=== PATIENT | male | born 1960 | race Caucasian/White ===

== ENCOUNTER 2019-02-20 21:20 | Inpatient (IN) | payer MEDICARE, OTHER ==
[2019-02-20 21:47] VITALS: BP 118/71
[2019-02-20] MEDS ORDERED: Magnesium Hydroxide (MOM) 30 mL UDC PO PRN (21:53)
[2019-02-21] MEDS: Multivitamin Tab PO SCH (11:53)
--- NOTE | 2019-02-21 14:48 | History & Physical ---
ADMIT DATE: 02/21/2019 CHIEF COMPLAINT: Agitated behavior. HISTORY OF PRESENT ILLNESS: This is a 58-year-old male with history of GERD. He initially ____ cleared medically. The patient denies previous history of weight loss, chest pain, headache and back pain. PAST MEDICAL HISTORY: As mentioned in history of present illness. PAST SURGICAL HISTORY: Denies surgeries in the past. ALLERGIES: No known drug allergies. MEDICATIONS: None from home, given multivitamin, Tylenol, Ambien. FAMILY HISTORY: Noncontributory. SOCIAL HISTORY: Denies smoking, drinks on occasion. The patient did maintenance. Denies intravenous drug use. Single, has a girlfriend. No children. REVIEW OF SYSTEMS: GENERAL: The patient denies any questionable symptoms. HEENT: No blurred vision. LUNGS: No diagnosis of COPD or asthma. HEART: Denies hypertension or coronary artery disease. ABDOMEN: No nausea, vomiting, pain, history of acid reflux. GENITOURINARY: The patient has increased dysuria. NEUROLOGIC: Complains of headache. No seizure or syncope. PSYCHIATRIC: As above. EXTREMITIES: Complaining of back pain. PHYSICAL EXAMINATION: VITAL SIGNS: Blood pressure 134/73, respiration 18, pulse , temperature 97.0. GENERAL: Middle-aged male in acute distress, well-developed. NECK: Supple. No mass. LUNGS: Equal breath sounds, otherwise clear to auscultation. HEART: Regular rate and rhythm without appreciable murmur. ABDOMEN: Soft, nontender. Positive bowel sounds. EXTREMITIES: No clubbing, cyanosis or edema. GENITOURINARY: This was refused. NEUROLOGIC: Motor and sensory were equal. Gait is within normal range. LABORATORY DATA: CBC, Chem-20 all within normal range in the [facility]. Please see the report. ASSESSMENT AND PLAN: 1. Gastroesophageal reflux disease. 2. Headache. We will continue the patient on proton pump inhibitor. 4. We will provide the patient nonsteroidal anti-inflammatory drugs. The patient medically cleared. Psychiatry to manage the patient for psych issues. We will continue to follow with you. JOB# [id number]
--- NOTE | 2019-02-21 22:45 | Psychiatric Evaluation ---
DATE OF SERVICE: 02/21/2019 HISTORY OF PRESENT ILLNESS: A 58-year-old male with history of schizophrenia, suicidal, not taking medications for about a week. The patient attests to paranoia, feeling that people are trying to hurt him, hopeless, despairing, notes he was suicidal for "1 hour." PAST PSYCHIATRIC HISTORY: Inpatient admissions in the past. Denies any suicide attempts. FAMILY HISTORY: Noncontributory. SOCIAL HISTORY: Born in [place]. Not , no kids, no drugs. Drinks alcohol once a week, unclear quantity. MEDICATIONS: Unclear. MENTAL STATUS EXAMINATION: Stated age, little eye contact. Speech within normal limits. Mood "okay." Affect flat, responding to internal stimuli, paranoid, guarded about any SI, no HI. Insight and judgment diminished. PROVISIONAL DIAGNOSES: Schizophrenia; mood, unspecified. MEDICAL: Please see full H and P. ESTIMATED LENGTH OF STAY: 7-12 days. ASSESSMENT: The patient requiring hospitalization, suicidal, psychotic, paranoid. PLAN: Treatment plan includes group as well as milieu therapy. We will reinitiate antipsychotic medications, trazodone for sleep, per the patient's request. CONDITIONS FOR DISCHARGE: Improved mood, improved affect, better control of any psychotic symptoms, suicidality. [facility]# [id number]
[2019-02-22] MEDS: Maalox 30 mL Cup PO PRN ×2 (00:25→08:56)
[2019-02-22] MEDS: Multivitamin Tab PO SCH (08:56)
[2019-02-22] MEDS: Pantoprazole 40 mg EC Tab PO SCH (08:56)
--- NOTE | 2019-02-22 12:23 | Internal Medicine Prog Note ---
Internal Medicine Subjective - Subjective Patient seen and examined:: with staff, chart reviewed Patient is:: awake, verbal, interactive, ambulating Patient Complaints of:: cough Per staff patient has:: no adverse event, no episodes of fall, eating well, tolerating meds Internal Medicine Objective - Physical Exam Vitals and I&O: Vital Signs Temp 97.3 F 02/22/19 06:36 Pulse 64 02/22/19 06:36 Resp 20 02/22/19 06:36 BP 104/63 02/22/19 06:36 Pulse Ox 97 02/22/19 06:36 Intake & Output 02/21/19 02/22/19 02/22/19 18:59 06:59 18:59 Intake Total 900 480 Balance 900 480 Intake: Oral 900 480 Other: # Voids 3 3 # Bowel Movements 1 0 Active Medications: Current Medications Acetaminophen (Tylenol) 650 mg PO Q4HR PRN PRN Reason: Mild Pain / Temp above 100 Stop: 04/21/19 21:52 Al Hydrox/Mg Hydrox/Simethicone (Maalox) 30 ml PO Q4HR PRN PRN Reason: GI DISTRESS Stop: 04/21/19 21:52 Last Admin: 02/22/19 08:56 Dose: 30 ml Lorazepam (Ativan) 0.5 mg PO Q4HR PRN; Protocol PRN Reason: Agitation Stop: 03/22/19 21:52 Magnesium Hydroxide (Milk Of Magnesia) 30 ml PO HS PRN PRN Reason: Constipation Multivitamins/Vitamin C (Theragran) 1 tab PO DAILY RUSSELL Stop: 04/22/19 08:59 Last Admin: 02/22/19 08:56 Dose: 1 tab Pantoprazole Sodium (Protonix) 40 mg PO DAILY RUSSELL Stop: 04/23/19 08:59 Last Admin: 02/22/19 08:56 Dose: 40 mg Risperidone (Risperdal) 1 mg PO BID RUSSELL; Protocol Stop: 04/23/19 16:59 Trazodone HCl (Desyrel) 50 mg PO HS RUSSELL; Protocol Stop: 04/22/19 20:59 Last Admin: 02/21/19 20:34 Dose: 50 mg General: alert HEENT: NC/AT, PERRLA, EOMI Neck: Supple, No JVD, No thyromegaly, No LAD Lungs: CTAB Cardiovascular: RRR, Normal S1, Normal S2, without murmur Abdomen: soft, non-tender, globular, non-distended, positive bowel sound Extremities: excoriation, contracture Neurological: no change, disorganized Internal Medicine Assmt/Plan - Assessment Assessment: gerd headache lbp sad - Plan Plan: cont on ppi labs from outside hospital noted cpm darrick rn
--- NOTE | 2019-02-22 21:31 | Progress Notes ---
DATE: 02/22/2019 SUBJECTIVE: The patient in the hospital, was apparently suicidal, not vannesa for safety, homeless, despairing, hopeless, helpless. The patient remains depressed. OBJECTIVE: On exam, mostly withdrawn, keeps to self, ongoing SI, still feeling paranoid, feeling that people may be trying to hurt him or harm him. ASSESSMENT: The patient remains psychotic, ongoing safety concerns, withdrawn, mostly keeps to self. No vertigo. PLAN: We will continue to monitor. I will be increasing his dosing of Risperdal today. JOB# [id number]
[2019-02-23] MEDS: Pantoprazole 40 mg EC Tab PO SCH (09:16)
[2019-02-23] MEDS: Multivitamin Tab PO SCH (09:16)
--- NOTE | 2019-02-23 12:43 | Internal Medicine Prog Note ---
Internal Medicine Subjective - Subjective Patient seen and examined:: with staff, chart reviewed Patient is:: awake, verbal, interactive, ambulating Patient Complaints of:: cough Per staff patient has:: no adverse event, no episodes of fall, eating well, tolerating meds Internal Medicine Objective - Physical Exam Vitals and I&O: Vital Signs Temp 97.4 F 02/23/19 05:59 Pulse 72 02/23/19 05:59 Resp 20 02/23/19 05:59 BP 107/63 02/23/19 05:59 Pulse Ox 94 02/23/19 05:59 Intake & Output 02/22/19 02/23/19 02/23/19 18:59 06:59 18:59 Intake Total 900 240 Balance 900 240 Intake: Oral 900 240 Other: # Voids 3 1 # Bowel Movements 1 0 Active Medications: Current Medications Acetaminophen (Tylenol) 650 mg PO Q4HR PRN PRN Reason: Mild Pain / Temp above 100 Stop: 04/21/19 21:52 Al Hydrox/Mg Hydrox/Simethicone (Maalox) 30 ml PO Q4HR PRN PRN Reason: GI DISTRESS Stop: 04/21/19 21:52 Last Admin: 02/22/19 08:56 Dose: 30 ml Lorazepam (Ativan) 0.5 mg PO Q4HR PRN; Protocol PRN Reason: Agitation Stop: 03/22/19 21:52 Magnesium Hydroxide (Milk Of Magnesia) 30 ml PO HS PRN PRN Reason: Constipation Multivitamins/Vitamin C (Theragran) 1 tab PO DAILY RUSSELL Stop: 04/22/19 08:59 Last Admin: 02/23/19 09:16 Dose: 1 tab Pantoprazole Sodium (Protonix) 40 mg PO DAILY RUSSELL Stop: 04/23/19 08:59 Last Admin: 02/23/19 09:16 Dose: 40 mg Risperidone (Risperdal) 1 mg PO BID RUSSELL; Protocol Stop: 04/23/19 16:59 Last Admin: 02/23/19 09:16 Dose: 1 mg Trazodone HCl (Desyrel) 50 mg PO HS RUSSELL; Protocol Stop: 04/22/19 20:59 Last Admin: 02/22/19 20:13 Dose: 50 mg General: alert HEENT: NC/AT, PERRLA, EOMI Neck: Supple, No JVD, No thyromegaly, No LAD Lungs: CTAB Cardiovascular: RRR, Normal S1, Normal S2, without murmur Abdomen: soft, non-tender, globular, non-distended, positive bowel sound Extremities: excoriation, contracture Neurological: no change, disorganized Internal Medicine Assmt/Plan - Assessment Assessment: gerd headache lbp sad - Plan Plan: cont on ppi labs from outside hospital noted cpm darrick brown
--- NOTE | 2019-02-24 02:46 | Progress Notes ---
DATE: 02/23/2019 SUBJECTIVE: A 58-year-old male who remains pretty depressed, mostly withdrawn, keeps to self, depressed, ongoing melancholy, isolation, has nowhere to go, has no plans of where he wants to go. He states he needs a place to go, has been homeless for 2 months. He states his board and care closed down, cooperative. Staff notes that at time he is bizarre, seems to be mumbling to self, ongoing concerns for underlying psychosis. No agitation. PLAN: We will continue to monitor. Continue dosing of Risperdal. Given recent dose increase. We will continue current dosing. JOB# [id number]
[2019-02-24] MEDS: Multivitamin Tab PO SCH (08:18)
[2019-02-24] MEDS: Pantoprazole 40 mg EC Tab PO SCH (08:19)
--- NOTE | 2019-02-24 13:12 | Internal Medicine Prog Note ---
Internal Medicine Subjective - Subjective Patient seen and examined:: with staff, chart reviewed Patient is:: awake, verbal, interactive, ambulating Patient Complaints of:: cough Per staff patient has:: no adverse event, no episodes of fall, eating well, tolerating meds Internal Medicine Objective - Physical Exam Vitals and I&O: Vital Signs Temp 97.4 F 02/24/19 06:36 Pulse 81 02/24/19 06:36 Resp 20 02/24/19 06:36 BP 103/71 02/24/19 06:36 Pulse Ox 98 02/24/19 06:36 Intake & Output 02/23/19 02/24/19 02/24/19 18:59 06:59 18:59 Intake Total 1200 360 Balance 1200 360 Intake: Oral 960 360 Other 240 Other: # Voids 4 2 # Bowel Movements 1 0 Active Medications: Current Medications Acetaminophen (Tylenol) 650 mg PO Q4HR PRN PRN Reason: Mild Pain / Temp above 100 Stop: 04/21/19 21:52 Al Hydrox/Mg Hydrox/Simethicone (Maalox) 30 ml PO Q4HR PRN PRN Reason: GI DISTRESS Stop: 04/21/19 21:52 Last Admin: 02/22/19 08:56 Dose: 30 ml Lorazepam (Ativan) 0.5 mg PO Q4HR PRN; Protocol PRN Reason: Agitation Stop: 03/22/19 21:52 Magnesium Hydroxide (Milk Of Magnesia) 30 ml PO HS PRN PRN Reason: Constipation Multivitamins/Vitamin C (Theragran) 1 tab PO DAILY RUSSELL Stop: 04/22/19 08:59 Last Admin: 02/24/19 08:18 Dose: 1 tab Pantoprazole Sodium (Protonix) 40 mg PO DAILY RUSSELL Stop: 04/23/19 08:59 Last Admin: 02/24/19 08:19 Dose: 40 mg Risperidone (Risperdal) 1 mg PO BID RUSSELL; Protocol Stop: 04/23/19 16:59 Last Admin: 02/24/19 08:19 Dose: 1 mg Trazodone HCl (Desyrel) 50 mg PO HS RUSSELL; Protocol Stop: 04/22/19 20:59 Last Admin: 02/23/19 21:17 Dose: 50 mg General: alert HEENT: NC/AT, PERRLA, EOMI Neck: Supple, No JVD, No thyromegaly, No LAD Lungs: CTAB Cardiovascular: RRR, Normal S1, Normal S2, without murmur Abdomen: soft, non-tender, globular, non-distended, positive bowel sound Extremities: excoriation, contracture Neurological: no change, disorganized Internal Medicine Assmt/Plan - Assessment Assessment: gerd headache lbp sad - Plan Plan: cont on ppi labs from outside hospital noted cpm darrick brown
--- NOTE | 2019-02-24 21:54 | Progress Notes ---
DATE: 02/24/2019 SUBJECTIVE: The patient in the hospital, pretty impoverished thought processes. I asked him where he is going to go; he is mostly fixated on a bus pass. When I asked him if he needs to go to senior care and what needs he needs at the senior care, he just keeps talking about a bus pass. Unable to really care for his basic needs. We are trying to help him with placement. He is focused on leaving, but really has nowhere to go and when I state he has nowhere to go, he agrees to stay. Pacing back and forth, mumbling to self. History of schizophrenia. PLAN: We will continue to monitor ongoing concerns about his ability to really function outside of the hospital setting. I will be increasing his dosing of Risperdal today. [facility]# [id number]
[2019-02-25] MEDS: Multivitamin Tab PO SCH (08:47)
[2019-02-25] MEDS: Pantoprazole 40 mg EC Tab PO SCH (08:47)
--- NOTE | 2019-02-25 12:48 | Internal Medicine Prog Note ---
Internal Medicine Subjective - Subjective Patient seen and examined:: with staff, chart reviewed Patient is:: awake, verbal, interactive, ambulating Patient Complaints of:: cough Per staff patient has:: no adverse event, no episodes of fall, eating well, tolerating meds Internal Medicine Objective - Physical Exam Vitals and I&O: Vital Signs Temp 97.6 F 02/25/19 06:29 Pulse 77 02/25/19 06:29 Resp 20 02/25/19 06:29 BP 107/62 02/25/19 06:29 Pulse Ox 96 02/25/19 06:29 Intake & Output 02/24/19 02/25/19 02/25/19 18:59 06:59 18:59 Intake Total 2400 120 Balance 2400 120 Intake: Oral 2400 120 Other: # Voids 5 3 # Bowel Movements 1 Active Medications: Current Medications Acetaminophen (Tylenol) 650 mg PO Q4HR PRN PRN Reason: Mild Pain / Temp above 100 Stop: 04/21/19 21:52 Al Hydrox/Mg Hydrox/Simethicone (Maalox) 30 ml PO Q4HR PRN PRN Reason: GI DISTRESS Stop: 04/21/19 21:52 Last Admin: 02/22/19 08:56 Dose: 30 ml Lorazepam (Ativan) 0.5 mg PO Q4HR PRN; Protocol PRN Reason: Agitation Stop: 03/22/19 21:52 Last Admin: 02/25/19 08:48 Dose: 0.5 mg Magnesium Hydroxide (Milk Of Magnesia) 30 ml PO HS PRN PRN Reason: Constipation Multivitamins/Vitamin C (Theragran) 1 tab PO DAILY RUSSELL Stop: 04/22/19 08:59 Last Admin: 02/25/19 08:47 Dose: 1 tab Pantoprazole Sodium (Protonix) 40 mg PO DAILY RUSSELL Stop: 04/23/19 08:59 Last Admin: 02/25/19 08:47 Dose: 40 mg Risperidone (Risperdal) 1.5 mg PO BID RUSSELL; Protocol Stop: 04/25/19 16:59 Last Admin: 02/25/19 08:47 Dose: 1.5 mg Trazodone HCl (Desyrel) 50 mg PO HS RUSSELL; Protocol Stop: 04/22/19 20:59 Last Admin: 02/24/19 21:56 Dose: 50 mg General: alert HEENT: NC/AT, PERRLA, EOMI Neck: Supple, No JVD, No thyromegaly, No LAD Lungs: CTAB Cardiovascular: RRR, Normal S1, Normal S2, without murmur Abdomen: soft, non-tender, globular, non-distended, positive bowel sound Extremities: excoriation, contracture Neurological: no change, disorganized Internal Medicine Assmt/Plan - Assessment Assessment: gerd headache lbp sad - Plan Plan: cont on ppi labs from outside hospital noted cpm dw rn Nutritional Asmnt/Malnutr-PDOC - Dietary Evaluation Malnutrition Findings (Please click <Entered> for more info): Nutritional Asmnt/Malnutrition Start: 02/25/19 12: 29 Text: Status: Complete Freq: Protocol: Document 02/25/19 12:29 CANDELARIA (Rec: 02/25/19 12:33 CANDELARIA [email or web address]) Nutritional Asmnt/Malnutrition Patient General Information Nutritional Screening Low Risk Diagnosis Psychosis, Schizophrenia Pertinent Medical Hx/Surgical Hx GERD Subjective Information Pt is a 58-year-old male admitted on 02/20 c/o agitated behavior. Per Meal/Nutrition Activity Record, Pt is eating 100% meals. HT: 511 WT: 177 LB (80.45 kg) BMI: 24.68 (Normal) GI: WNL, Soft, Non-Tender BM: 8/2 x1 I/O: 2520/Not Noted Skin: WNL, Intact Jamison: 19 Diet Order: Regular Estimated Energy Needs: (Adult , CBW) 6960-9128 kcals (25-30 kcals/ kg) 64-72 g Pro (0.8-0.9 g/kg) 3737-5655 ml (35-40 ml/kg) Pt is eating 100% of meals Per Meal/Nutrition Activity Record. Dietary is currently providing an estimated 2628 kcals and 113 gm Pro to meet 100% kcal and 100+% Pro needs. Current Diet Order/ Nutrition Support Regular Pertinent Medications Maalox (PRN), MOM (PRN), Theragran, Protonix Pertinent Labs No Pertinent labs noted Nutritional Hx/Data Height 1.8 m Height (Calculated Centimeters) 180.3 Current Weight (lbs) 80.286 kg Weight (Calculated Kilograms) 80.3 Weight (Calculated Grams) 81493.8 [place] Body Weight 75.3 kg % [place] Body Weight 106 Body Mass Index (BMI) 24.7 Weight Status Approriate GI Symptoms GI Symptoms None Last BM 8/ x1 Skin Integrity/Comment: WNL, Intact Jamison: 19 Current %PO Good (75-100%) Estimated Nutritional Goals BEE in Kcals: Using Current wt Calories/Kcals/Kg 25-30 Kcals Calculated 2485-7981 Protein: Using Current wt Protein g/k.8-0.9 Protein Calculated 64-72 Fluid: ml 4007-6320 ml (35-40 ml/kg) Nutritional Problem No current Nutrition Prob Problem N/A Etiology N/A Signs/Symptoms: N/A Malnutrition Related to Morbid Obesity Malnutrition related to morbid obesity No Intervention/Recommendation Comments 1.Continue with regular diet as ordered. Expected Outcomes/Goals Expected Outcomes/Goals 1.PO intake to continue to meet >75% of nutritional needs . 2.Monitor PO intake, wt, nutrition related labs, and skin integrity. 3.F/U as low risk in 7 days,
[2019-02-25] MEDS: Maalox 30 mL Cup PO PRN (22:18)
--- NOTE | 2019-02-25 22:52 | Progress Notes ---
DATE: 02/25/2019 SUBJECTIVE: The patient seen, chart reviewed, discussed with staff. The patient is currently in the hospital, still disorganized, nonsensical, talking about different topics, mostly fixated on where he wants to go in terms of a board and care, [place] [facility], just rambling off different cities and no current plans for care, mostly withdrawn, keeps to self, seems to be having a long history of schizophrenia, pacing the hallways, mumbling to self. Otherwise calm, generally cooperative, taking his medications. No current side effects. No EPS. ASSESSMENT: Ongoing concerns about his ability to attend to his basic needs given ongoing psychotic symptoms. PLAN: We will continue to monitor, slowly titrate Risperdal. [facility]# [id number]
[2019-02-26] MEDS: Maalox 30 mL Cup PO PRN (06:40)
[2019-02-26] MEDS: Pantoprazole 40 mg EC Tab PO SCH (08:00)
[2019-02-26] MEDS: Multivitamin Tab PO SCH (08:01)
--- NOTE | 2019-02-26 12:05 | Internal Medicine Prog Note ---
Internal Medicine Subjective - Subjective Patient seen and examined:: with staff, chart reviewed Patient is:: awake, verbal, interactive, ambulating Patient Complaints of:: cough Per staff patient has:: no adverse event, no episodes of fall, eating well, tolerating meds Internal Medicine Objective - Physical Exam Vitals and I&O: Vital Signs Temp 97.8 F 02/26/19 06:42 Pulse 76 02/26/19 06:42 Resp 18 02/26/19 06:42 BP 145/78 02/26/19 06:42 Pulse Ox 96 02/26/19 06:42 Intake & Output 02/25/19 02/26/19 02/26/19 18:59 06:59 18:59 Intake Total 1200 120 Balance 1200 120 Intake: Oral 1200 120 Other: # Voids 3 # Bowel Movements 0 Active Medications: Current Medications Acetaminophen (Tylenol) 650 mg PO Q4HR PRN PRN Reason: Mild Pain / Temp above 100 Stop: 04/21/19 21:52 Al Hydrox/Mg Hydrox/Simethicone (Maalox) 30 ml PO Q4HR PRN PRN Reason: GI DISTRESS Stop: 04/21/19 21:52 Last Admin: 02/26/19 06:40 Dose: 30 ml Lorazepam (Ativan) 0.5 mg PO Q4HR PRN; Protocol PRN Reason: Agitation Stop: 03/22/19 21:52 Last Admin: 02/25/19 08:48 Dose: 0.5 mg Magnesium Hydroxide (Milk Of Magnesia) 30 ml PO HS PRN PRN Reason: Constipation Multivitamins/Vitamin C (Theragran) 1 tab PO DAILY RUSSELL Stop: 04/22/19 08:59 Last Admin: 02/26/19 08:01 Dose: 1 tab Pantoprazole Sodium (Protonix) 40 mg PO DAILY RUSSELL Stop: 04/23/19 08:59 Last Admin: 02/26/19 08:00 Dose: 40 mg Risperidone (Risperdal) 1.5 mg PO BID RUSSELL; Protocol Stop: 04/25/19 16:59 Last Admin: 02/26/19 08:00 Dose: 1.5 mg Trazodone HCl (Desyrel) 50 mg PO HS RUSSELL; Protocol Stop: 04/22/19 20:59 Last Admin: 02/25/19 20:41 Dose: 50 mg General: alert HEENT: NC/AT, PERRLA, EOMI Neck: Supple, No JVD, No thyromegaly, No LAD Lungs: CTAB Cardiovascular: RRR, Normal S1, Normal S2, without murmur Abdomen: soft, non-tender, globular, non-distended, positive bowel sound Extremities: excoriation, contracture Neurological: no change, disorganized Internal Medicine Assmt/Plan - Assessment Assessment: gerd headache lbp sad - Plan Plan: cont on ppi labs from outside hospital noted cpm dw rn Nutritional Asmnt/Malnutr-PDOC - Dietary Evaluation Malnutrition Findings (Please click <Entered> for more info): Nutritional Asmnt/Malnutrition Start: 02/25/19 12: 29 Text: Status: Complete Freq: Protocol: Document 02/25/19 12:29 CANDELARIA (Rec: 02/25/19 12:33 CANDELARIA [email or web address]) Nutritional Asmnt/Malnutrition Patient General Information Nutritional Screening Low Risk Diagnosis Psychosis, Schizophrenia Pertinent Medical Hx/Surgical Hx GERD Subjective Information Pt is a 58-year-old male admitted on 02/20 c/o agitated behavior. Per Meal/Nutrition Activity Record, Pt is eating 100% meals. HT: 511 WT: 177 LB (80.45 kg) BMI: 24.68 (Normal) GI: WNL, Soft, Non-Tender BM: 8/2 x1 I/O: 2520/Not Noted Skin: WNL, Intact Jamison: 19 Diet Order: Regular Estimated Energy Needs: (Adult , CBW) 5007-4556 kcals (25-30 kcals/ kg) 64-72 g Pro (0.8-0.9 g/kg) 5020-7293 ml (35-40 ml/kg) Pt is eating 100% of meals Per Meal/Nutrition Activity Record. Dietary is currently providing an estimated 2628 kcals and 113 gm Pro to meet 100% kcal and 100+% Pro needs. Current Diet Order/ Nutrition Support Regular Pertinent Medications Maalox (PRN), MOM (PRN), Theragran, Protonix Pertinent Labs No Pertinent labs noted Nutritional Hx/Data Height 1.8 m Height (Calculated Centimeters) 180.3 Current Weight (lbs) 80.286 kg Weight (Calculated Kilograms) 80.3 Weight (Calculated Grams) 04373.8 [place] Body Weight 75.3 kg % [place] Body Weight 106 Body Mass Index (BMI) 24.7 Weight Status Approriate GI Symptoms GI Symptoms None Last BM 8/ x1 Skin Integrity/Comment: WNL, Intact Jam[place]: 19 Current %PO Good (75-100%) Estimated Nutritional Goals BEE in Kcals: Using Current wt Calories/Kcals/Kg 25-30 Kcals Calculated 3912-1345 Protein: Using Current wt Protein g/k.8-0.9 Protein Calculated 64-72 Fluid: ml 3888-9012 ml (35-40 ml/kg) Nutritional Problem No current Nutrition Prob Problem N/A Etiology N/A Signs/Symptoms: N/A Malnutrition Related to Morbid Obesity Malnutrition related to morbid obesity No Intervention/Recommendation Comments 1.Continue with regular diet as ordered. Expected Outcomes/Goals Expected Outcomes/Goals 1.PO intake to continue to meet >75% of nutritional needs . 2.Monitor PO intake, wt, nutrition related labs, and skin integrity. 3.F/U as low risk in 7 days,
--- NOTE | 2019-02-26 23:23 | Progress Notes ---
DATE: Dr. Payton covering for Dr. Lucia. Chart reviewed and the patient interviewed. Also discussed the patient's condition with the staff and reviewed records and labs. The patient is still pacing up and down the unit aimlessly in a confused state. The patient also still seems to be confused and unable to carry on coherent conversation. The patient also is suspicious and is paranoid. Also, during my interview, the patient was rambling and thought processes are circumstantial and tangential, but no flight of ideas. ASSESSMENT: The patient is still confused and agitated. TREATMENT PLAN: Continue to monitor behavior and condition closely. Also, continue adjusting psychotropic medications and work on behavioral modification. JOB# [id number]
[2019-02-27] MEDS: Multivitamin Tab PO SCH (08:10)
[2019-02-27] MEDS: Pantoprazole 40 mg EC Tab PO SCH (08:10)
--- NOTE | 2019-02-27 13:24 | Internal Medicine Prog Note ---
Internal Medicine Subjective - Subjective Patient seen and examined:: with staff, chart reviewed Patient is:: awake, verbal, interactive, ambulating Patient Complaints of:: cough Per staff patient has:: no adverse event, no episodes of fall, eating well, tolerating meds Internal Medicine Objective - Physical Exam Vitals and I&O: Vital Signs Temp 97.4 F 02/27/19 06:27 Pulse 69 02/27/19 06:27 Resp 19 02/27/19 06:27 BP 111/69 02/27/19 06:27 Pulse Ox 92 02/27/19 06:27 Intake & Output 02/26/19 02/27/19 02/27/19 18:59 06:59 18:59 Intake Total 1600 120 Balance 1600 120 Intake: Oral 1600 120 Other: # Voids 4 2 # Bowel Movements 0 0 Active Medications: Current Medications Acetaminophen (Tylenol) 650 mg PO Q4HR PRN PRN Reason: Mild Pain / Temp above 100 Stop: 04/21/19 21:52 Al Hydrox/Mg Hydrox/Simethicone (Maalox) 30 ml PO Q4HR PRN PRN Reason: GI DISTRESS Stop: 04/21/19 21:52 Last Admin: 02/26/19 06:40 Dose: 30 ml Lorazepam (Ativan) 0.5 mg PO Q4HR PRN; Protocol PRN Reason: Agitation Stop: 03/22/19 21:52 Last Admin: 02/25/19 08:48 Dose: 0.5 mg Magnesium Hydroxide (Milk Of Magnesia) 30 ml PO HS PRN PRN Reason: Constipation Multivitamins/Vitamin C (Theragran) 1 tab PO DAILY RUSSELL Stop: 04/22/19 08:59 Last Admin: 02/27/19 08:10 Dose: 1 tab Pantoprazole Sodium (Protonix) 40 mg PO DAILY RUSSELL Stop: 04/23/19 08:59 Last Admin: 02/27/19 08:10 Dose: 40 mg Risperidone (Risperdal) 1.5 mg PO BID RUSSELL; Protocol Stop: 04/25/19 16:59 Last Admin: 02/27/19 08:11 Dose: 1.5 mg Trazodone HCl (Desyrel) 50 mg PO HS RUSSELL; Protocol Stop: 04/22/19 20:59 Last Admin: 02/26/19 21:33 Dose: 50 mg General: alert HEENT: NC/AT, PERRLA, EOMI Neck: Supple, No JVD, No thyromegaly, No LAD Lungs: CTAB Cardiovascular: RRR, Normal S1, Normal S2, without murmur Abdomen: soft, non-tender, globular, non-distended, positive bowel sound Extremities: excoriation, contracture Neurological: no change, disorganized Internal Medicine Assmt/Plan - Assessment Assessment: gerd headache lbp sad - Plan Plan: cont on ppi labs from outside hospital noted cpm dw rn Nutritional Asmnt/Malnutr-PDOC - Dietary Evaluation Malnutrition Findings (Please click <Entered> for more info): Nutritional Asmnt/Malnutrition Start: 02/25/19 12: 29 Text: Status: Complete Freq: Protocol: Document 02/25/19 12:29 CANDELARIA (Rec: 02/25/19 12:33 CANDELARIA [email or web address]) Nutritional Asmnt/Malnutrition Patient General Information Nutritional Screening Low Risk Diagnosis Psychosis, Schizophrenia Pertinent Medical Hx/Surgical Hx GERD Subjective Information Pt is a 58-year-old male admitted on 02/20 c/o agitated behavior. Per Meal/Nutrition Activity Record, Pt is eating 100% meals. HT: 511 WT: 177 LB (80.45 kg) BMI: 24.68 (Normal) GI: WNL, Soft, Non-Tender BM: 8/2 x1 I/O: 2520/Not Noted Skin: WNL, Intact Jamison: 19 Diet Order: Regular Estimated Energy Needs: (Adult , CBW) 8026-5959 kcals (25-30 kcals/ kg) 64-72 g Pro (0.8-0.9 g/kg) 5571-3180 ml (35-40 ml/kg) Pt is eating 100% of meals Per Meal/Nutrition Activity Record. Dietary is currently providing an estimated 2628 kcals and 113 gm Pro to meet 100% kcal and 100+% Pro needs. Current Diet Order/ Nutrition Support Regular Pertinent Medications Maalox (PRN), MOM (PRN), Theragran, Protonix Pertinent Labs No Pertinent labs noted Nutritional Hx/Data Height 1.8 m Height (Calculated Centimeters) 180.3 Current Weight (lbs) 80.286 kg Weight (Calculated Kilograms) 80.3 Weight (Calculated Grams) 41081.8 [place] Body Weight 75.3 kg % [place] Body Weight 106 Body Mass Index (BMI) 24.7 Weight Status Approriate GI Symptoms GI Symptoms None Last BM 8/ x1 Skin Integrity/Comment: WNL, Intact Jamison: 19 Current %PO Good (75-100%) Estimated Nutritional Goals BEE in Kcals: Using Current wt Calories/Kcals/Kg 25-30 Kcals Calculated 3762-3694 Protein: Using Current wt Protein g/k.8-0.9 Protein Calculated 64-72 Fluid: ml 6780-1390 ml (35-40 ml/kg) Nutritional Problem No current Nutrition Prob Problem N/A Etiology N/A Signs/Symptoms: N/A Malnutrition Related to Morbid Obesity Malnutrition related to morbid obesity No Intervention/Recommendation Comments 1.Continue with regular diet as ordered. Expected Outcomes/Goals Expected Outcomes/Goals 1.PO intake to continue to meet >75% of nutritional needs . 2.Monitor PO intake, wt, nutrition related labs, and skin integrity. 3.F/U as low risk in 7 days,
--- NOTE | 2019-02-27 20:33 | Progress Notes ---
DATE: 02/27/2019 SUBJECTIVE: Chart was reviewed and the patient interviewed. Also discussed the patient's condition with the staff and reviewed records and labs. The patient is still anxious and is still restless. The patient also seems to be preoccupied and responding. The patient also is asking for food and gets agitated when not given food. He also is still compliant with taking his medications with no side effects. ASSESSMENT: The patient is still agitated and is still in an irritable mood. TREATMENT PLAN: Continue to monitor behavior and condition closely. Also, continue adjusting psychotropic medications and work on behavioral modification. JOB# [id number]
[2019-02-28] MEDS: Pantoprazole 40 mg EC Tab PO SCH (08:17)
[2019-02-28] MEDS: Multivitamin Tab PO SCH (08:17)
--- NOTE | 2019-02-28 13:57 | Internal Medicine Prog Note ---
Internal Medicine Subjective - Subjective Service Date: 02/28/19 Patient is:: awake, verbal, interactive, ambulating Patient Complaints of:: cough Per staff patient has:: no adverse event, no episodes of fall, eating well, tolerating meds Internal Medicine Objective - Physical Exam Vitals and I&O: Vital Signs Temp 98.4 F 02/28/19 13:45 Pulse 89 02/28/19 13:45 Resp 18 02/28/19 13:45 BP 129/71 02/28/19 13:45 Pulse Ox 94 02/28/19 13:45 Intake & Output 02/27/19 02/28/19 02/28/19 18:59 06:59 18:59 Intake Total 1000 240 Balance 1000 240 Intake: Oral 1000 240 Other: # Voids 4 3 # Bowel Movements 1 0 Active Medications: Current Medications Acetaminophen (Tylenol) 650 mg PO Q4HR PRN PRN Reason: Mild Pain / Temp above 100 Stop: 04/21/19 21:52 Al Hydrox/Mg Hydrox/Simethicone (Maalox) 30 ml PO Q4HR PRN PRN Reason: GI DISTRESS Stop: 04/21/19 21:52 Last Admin: 02/26/19 06:40 Dose: 30 ml Lorazepam (Ativan) 0.5 mg PO Q4HR PRN; Protocol PRN Reason: Agitation Stop: 03/22/19 21:52 Last Admin: 02/27/19 21:03 Dose: 0.5 mg Magnesium Hydroxide (Milk Of Magnesia) 30 ml PO HS PRN PRN Reason: Constipation Multivitamins/Vitamin C (Theragran) 1 tab PO DAILY RUSSELL Stop: 04/22/19 08:59 Last Admin: 02/28/19 08:17 Dose: 1 tab Pantoprazole Sodium (Protonix) 40 mg PO DAILY RUSSELL Stop: 04/23/19 08:59 Last Admin: 02/28/19 08:17 Dose: 40 mg Risperidone (Risperdal) 1.5 mg PO BID RUSSELL; Protocol Stop: 04/25/19 16:59 Last Admin: 02/28/19 08:18 Dose: 1.5 mg Trazodone HCl (Desyrel) 50 mg PO HS RUSSELL; Protocol Stop: 04/22/19 20:59 Last Admin: 02/27/19 21:03 Dose: 50 mg General: alert HEENT: NC/AT, PERRLA, EOMI Neck: Supple, No JVD, No thyromegaly, No LAD Lungs: CTAB Cardiovascular: RRR, Normal S1, Normal S2, without murmur Abdomen: soft, non-tender, globular, non-distended, positive bowel sound Extremities: excoriation, contracture Neurological: no change, disorganized Internal Medicine Assmt/Plan - Assessment Assessment: gerd headache lbp sad - Plan Plan: cont on ppi labs from outside hospital noted cpm dw rn Nutritional Asmnt/Malnutr-PDOC - Dietary Evaluation Malnutrition Findings (Please click <Entered> for more info): Nutritional Asmnt/Malnutrition Start: 02/25/19 12: 29 Text: Status: Complete Freq: Protocol: Document 02/25/19 12:29 CANDELARIA (Rec: 02/25/19 12:33 CANDELARIA [email or web address]) Nutritional Asmnt/Malnutrition Patient General Information Nutritional Screening Low Risk Diagnosis Psychosis, Schizophrenia Pertinent Medical Hx/Surgical Hx GERD Subjective Information Pt is a 58-year-old male admitted on 02/20 c/o agitated behavior. Per Meal/Nutrition Activity Record, Pt is eating 100% meals. HT: 511 WT: 177 LB (80.45 kg) BMI: 24.68 (Normal) GI: WNL, Soft, Non-Tender BM: 8/2 x1 I/O: 2520/Not Noted Skin: WNL, Intact Jamison: 19 Diet Order: Regular Estimated Energy Needs: (Adult , CBW) 8751-0005 kcals (25-30 kcals/ kg) 64-72 g Pro (0.8-0.9 g/kg) 1402-3024 ml (35-40 ml/kg) Pt is eating 100% of meals Per Meal/Nutrition Activity Record. Dietary is currently providing an estimated 2628 kcals and 113 gm Pro to meet 100% kcal and 100+% Pro needs. Current Diet Order/ Nutrition Support Regular Pertinent Medications Maalox (PRN), MOM (PRN), Theragran, Protonix Pertinent Labs No Pertinent labs noted Nutritional Hx/Data Height 5 ft 11 in Height (Calculated Centimeters) 180.3 Current Weight (lbs) 177 lb Weight (Calculated Kilograms) 80.3 Weight (Calculated Grams) 61781.8 [place] Body Weight 75.3 kg % [place] Body Weight 106 Body Mass Index (BMI) 24.7 Weight Status Approriate GI Symptoms GI Symptoms None Last BM 8/ x1 Skin Integrity/Comment: WNL, Intact Jamison: 19 Current %PO Good (75-100%) Estimated Nutritional Goals BEE in Kcals: Using Current wt Calories/Kcals/Kg 25-30 Kcals Calculated 9158-4651 Protein: Using Current wt Protein g/k.8-0.9 Protein Calculated 64-72 Fluid: ml 8165-2916 ml (35-40 ml/kg) Nutritional Problem No current Nutrition Prob Problem N/A Etiology N/A Signs/Symptoms: N/A Malnutrition Related to Morbid Obesity Malnutrition related to morbid obesity No Intervention/Recommendation Comments 1.Continue with regular diet as ordered. Expected Outcomes/Goals Expected Outcomes/Goals 1.PO intake to continue to meet >75% of nutritional needs . 2.Monitor PO intake, wt, nutrition related labs, and skin integrity. 3.F/U as low risk in 7 days,
--- NOTE | 2019-02-28 21:51 | Progress Notes ---
DATE: 02/28/2019 SUBJECTIVE: A 58-year-old male, seems to be somewhat calmer, still has periods of agitation and irritability, but able to verbalize his needs, wants to go to a half-way or a board and care locally. Also complaining of poor sleep. The patient seems to be more redirectable on higher doses of Seroquel, complaining of poor sleep. I am going to be increasing his dosing of trazodone. PLAN: We will coordinate care with social work regarding safe discharge plan and good psychiatric followup. JOB# [id number]
[2019-03-01] MEDS: Multivitamin Tab PO SCH (08:51)
[2019-03-01] MEDS: Pantoprazole 40 mg EC Tab PO SCH (08:51)
--- NOTE | 2019-03-01 10:35 | Internal Medicine Prog Note ---
Internal Medicine Subjective - Subjective Service Date: 03/01/19 Patient is:: awake, verbal, interactive, ambulating Patient Complaints of:: cough Per staff patient has:: no adverse event, no episodes of fall, eating well, tolerating meds Internal Medicine Objective - Physical Exam Vitals and I&O: Vital Signs Temp 97.6 F 03/01/19 05:48 Pulse 93 03/01/19 05:48 Resp 18 03/01/19 05:48 BP 121/82 03/01/19 05:48 Pulse Ox 98 03/01/19 05:48 Intake & Output 02/28/19 03/01/19 03/01/19 18:59 06:59 18:59 Intake Total 360 Balance 360 Intake: Oral 360 Other: # Voids 3 # Bowel Movements 0 Active Medications: Current Medications Acetaminophen (Tylenol) 650 mg PO Q4HR PRN PRN Reason: Mild Pain / Temp above 100 Stop: 04/21/19 21:52 Al Hydrox/Mg Hydrox/Simethicone (Maalox) 30 ml PO Q4HR PRN PRN Reason: GI DISTRESS Stop: 04/21/19 21:52 Last Admin: 02/26/19 06:40 Dose: 30 ml Lorazepam (Ativan) 0.5 mg PO Q4HR PRN; Protocol PRN Reason: Agitation Stop: 03/22/19 21:52 Last Admin: 02/28/19 20:33 Dose: 0.5 mg Magnesium Hydroxide (Milk Of Magnesia) 30 ml PO HS PRN PRN Reason: Constipation Multivitamins/Vitamin C (Theragran) 1 tab PO DAILY RUSSELL Stop: 04/22/19 08:59 Last Admin: 03/01/19 08:51 Dose: 1 tab Pantoprazole Sodium (Protonix) 40 mg PO DAILY RUSSELL Stop: 04/23/19 08:59 Last Admin: 03/01/19 08:51 Dose: 40 mg Risperidone (Risperdal) 1.5 mg PO BID RUSSELL; Protocol Stop: 04/25/19 16:59 Last Admin: 03/01/19 08:51 Dose: 1.5 mg Trazodone HCl (Desyrel) 100 mg PO HS RUSSELL; Protocol Stop: 04/29/19 20:59 Last Admin: 02/28/19 20:33 Dose: 100 mg General: alert HEENT: NC/AT, PERRLA, EOMI Neck: Supple, No JVD, No thyromegaly, No LAD Lungs: CTAB Cardiovascular: RRR, Normal S1, Normal S2, without murmur Abdomen: soft, non-tender, globular, non-distended, positive bowel sound Extremities: excoriation, contracture Neurological: no change, disorganized Internal Medicine Assmt/Plan - Assessment Assessment: gerd headache lbp sad - Plan Plan: cont on ppi labs from outside hospital noted cpm dw rn Nutritional Asmnt/Malnutr-PDOC - Dietary Evaluation Malnutrition Findings (Please click <Entered> for more info): Nutritional Asmnt/Malnutrition Start: 02/25/19 12: 29 Text: Status: Complete Freq: Protocol: Document 02/25/19 12:29 CANDELARIA (Rec: 02/25/19 12:33 CANDELARIA [email or web address]) Nutritional Asmnt/Malnutrition Patient General Information Nutritional Screening Low Risk Diagnosis Psychosis, Schizophrenia Pertinent Medical Hx/Surgical Hx GERD Subjective Information Pt is a 58-year-old male admitted on 02/20 c/o agitated behavior. Per Meal/Nutrition Activity Record, Pt is eating 100% meals. HT: 511 WT: 177 LB (80.45 kg) BMI: 24.68 (Normal) GI: WNL, Soft, Non-Tender BM: 8/2 x1 I/O: 2520/Not Noted Skin: WNL, Intact Jamison: 19 Diet Order: Regular Estimated Energy Needs: (Adult , CBW) 9187-7258 kcals (25-30 kcals/ kg) 64-72 g Pro (0.8-0.9 g/kg) 6197-4305 ml (35-40 ml/kg) Pt is eating 100% of meals Per Meal/Nutrition Activity Record. Dietary is currently providing an estimated 2628 kcals and 113 gm Pro to meet 100% kcal and 100+% Pro needs. Current Diet Order/ Nutrition Support Regular Pertinent Medications Maalox (PRN), MOM (PRN), Theragran, Protonix Pertinent Labs No Pertinent labs noted Nutritional Hx/Data Height 5 ft 11 in Height (Calculated Centimeters) 180.3 Current Weight (lbs) 177 lb Weight (Calculated Kilograms) 80.3 Weight (Calculated Grams) 72611.8 [place] Body Weight 75.3 kg % [place] Body Weight 106 Body Mass Index (BMI) 24.7 Weight Status Approriate GI Symptoms GI Symptoms None Last BM 8/ x1 Skin Integrity/Comment: WNL, Intact Jamison: 19 Current %PO Good (75-100%) Estimated Nutritional Goals BEE in Kcals: Using Current wt Calories/Kcals/Kg 25-30 Kcals Calculated 8006-1730 Protein: Using Current wt Protein g/k.8-0.9 Protein Calculated 64-72 Fluid: ml 2969-9298 ml (35-40 ml/kg) Nutritional Problem No current Nutrition Prob Problem N/A Etiology N/A Signs/Symptoms: N/A Malnutrition Related to Morbid Obesity Malnutrition related to morbid obesity No Intervention/Recommendation Comments 1.Continue with regular diet as ordered. Expected Outcomes/Goals Expected Outcomes/Goals 1.PO intake to continue to meet >75% of nutritional needs . 2.Monitor PO intake, wt, nutrition related labs, and skin integrity. 3.F/U as low risk in 7 days,
[2019-03-01] MEDS: Maalox 30 mL Cup PO PRN (12:55)
--- NOTE | 2019-03-01 22:04 | Progress Notes ---
DATE: 03/01/2019 SUBJECTIVE: The patient in the hospital, seems to be calmer, sleeping fairly well, eating well. Still impoverished thought processes, no agitation, no escalation of behaviors. Still mumbling to self, preoccupied, but no SI, no HI, likely seems to be approaching his baseline, currently gravely disabled, nowhere to go. We are trying to actively find him a place to go. He is pretty ruminative in this regard. He is redirectable; however, better sleep with increased dosing of trazodone. ASSESSMENT: Ongoing psychotic symptoms, concerns were really his ability to care for his basic needs. We are trying to help him with placement. PLAN: We will continue to monitor, titrate medications. JOB# [id number]
[2019-03-02] MEDS: Multivitamin Tab PO SCH (08:01)
[2019-03-02] MEDS: Pantoprazole 40 mg EC Tab PO SCH (08:02)
--- NOTE | 2019-03-02 11:05 | Internal Medicine Prog Note ---
Internal Medicine Subjective - Subjective Service Date: 03/02/19 Patient is:: awake, verbal, interactive, ambulating Patient Complaints of:: cough Per staff patient has:: no adverse event, no episodes of fall, eating well, tolerating meds Internal Medicine Objective - Physical Exam Vitals and I&O: Vital Signs Temp 98.3 F 03/02/19 06:34 Pulse 78 03/02/19 06:34 Resp 20 03/02/19 06:34 BP 123/69 03/02/19 06:34 Pulse Ox 95 03/02/19 06:34 Intake & Output 03/01/19 03/02/19 03/02/19 18:59 06:59 18:59 Intake Total 120 Balance 120 Intake: Oral 120 Other: # Voids 2 3 # Bowel Movements 1 0 Active Medications: Current Medications Acetaminophen (Tylenol) 650 mg PO Q4HR PRN PRN Reason: Mild Pain / Temp above 100 Stop: 04/21/19 21:52 Al Hydrox/Mg Hydrox/Simethicone (Maalox) 30 ml PO Q4HR PRN PRN Reason: GI DISTRESS Stop: 04/21/19 21:52 Last Admin: 03/01/19 12:55 Dose: 30 ml Lorazepam (Ativan) 0.5 mg PO Q4HR PRN; Protocol PRN Reason: Agitation Stop: 03/22/19 21:52 Last Admin: 02/28/19 20:33 Dose: 0.5 mg Magnesium Hydroxide (Milk Of Magnesia) 30 ml PO HS PRN PRN Reason: Constipation Multivitamins/Vitamin C (Theragran) 1 tab PO DAILY RUSSELL Stop: 04/22/19 08:59 Last Admin: 03/02/19 08:01 Dose: 1 tab Pantoprazole Sodium (Protonix) 40 mg PO DAILY RUSSELL Stop: 04/23/19 08:59 Last Admin: 03/02/19 08:02 Dose: 40 mg Risperidone (Risperdal) 1.5 mg PO BID RUSSELL; Protocol Stop: 04/25/19 16:59 Last Admin: 03/02/19 08:01 Dose: 1.5 mg Trazodone HCl (Desyrel) 100 mg PO HS RUSSELL; Protocol Stop: 04/29/19 20:59 Last Admin: 03/01/19 20:47 Dose: 100 mg General: alert HEENT: NC/AT, PERRLA, EOMI Neck: Supple, No JVD, No thyromegaly, No LAD Lungs: CTAB Cardiovascular: RRR, Normal S1, Normal S2, without murmur Abdomen: soft, non-tender, globular, non-distended, positive bowel sound Extremities: excoriation, contracture Neurological: no change, disorganized Internal Medicine Assmt/Plan - Assessment Assessment: gerd headache lbp sad - Plan Plan: cont on ppi labs from outside hospital noted cpm dw rn Nutritional Asmnt/Malnutr-PDOC - Dietary Evaluation Malnutrition Findings (Please click <Entered> for more info): Nutritional Asmnt/Malnutrition Start: 02/25/19 12: 29 Text: Status: Complete Freq: Protocol: Document 02/25/19 12:29 CANDELARIA (Rec: 02/25/19 12:33 CANDELARIA [email or web address]) Nutritional Asmnt/Malnutrition Patient General Information Nutritional Screening Low Risk Diagnosis Psychosis, Schizophrenia Pertinent Medical Hx/Surgical Hx GERD Subjective Information Pt is a 58-year-old male admitted on 02/20 c/o agitated behavior. Per Meal/Nutrition Activity Record, Pt is eating 100% meals. HT: 511 WT: 177 LB (80.45 kg) BMI: 24.68 (Normal) GI: WNL, Soft, Non-Tender BM: 8/2 x1 I/O: 2520/Not Noted Skin: WNL, Intact Jamison: 19 Diet Order: Regular Estimated Energy Needs: (Adult , CBW) 5530-9550 kcals (25-30 kcals/ kg) 64-72 g Pro (0.8-0.9 g/kg) 5714-5363 ml (35-40 ml/kg) Pt is eating 100% of meals Per Meal/Nutrition Activity Record. Dietary is currently providing an estimated 2628 kcals and 113 gm Pro to meet 100% kcal and 100+% Pro needs. Current Diet Order/ Nutrition Support Regular Pertinent Medications Maalox (PRN), MOM (PRN), Theragran, Protonix Pertinent Labs No Pertinent labs noted Nutritional Hx/Data Height 5 ft 11 in Height (Calculated Centimeters) 180.3 Current Weight (lbs) 177 lb Weight (Calculated Kilograms) 80.3 Weight (Calculated Grams) 07171.8 [place] Body Weight 75.3 kg % [place] Body Weight 106 Body Mass Index (BMI) 24.7 Weight Status Approriate GI Symptoms GI Symptoms None Last BM 8/ x1 Skin Integrity/Comment: WNL, Intact Jamison: 19 Current %PO Good (75-100%) Estimated Nutritional Goals BEE in Kcals: Using Current wt Calories/Kcals/Kg 25-30 Kcals Calculated 2733-8925 Protein: Using Current wt Protein g/k.8-0.9 Protein Calculated 64-72 Fluid: ml 3577-3803 ml (35-40 ml/kg) Nutritional Problem No current Nutrition Prob Problem N/A Etiology N/A Signs/Symptoms: N/A Malnutrition Related to Morbid Obesity Malnutrition related to morbid obesity No Intervention/Recommendation Comments 1.Continue with regular diet as ordered. Expected Outcomes/Goals Expected Outcomes/Goals 1.PO intake to continue to meet >75% of nutritional needs . 2.Monitor PO intake, wt, nutrition related labs, and skin integrity. 3.F/U as low risk in 7 days,
--- NOTE | 2019-03-02 23:42 | Progress Notes ---
DATE: 03/01/2019 SUBJECTIVE: The patient is anxious, still pacing, mumbling to self, likely approaching to the baseline. We are trying to find him a place to go. Concerns about his ability to care for his basic needs given his ongoing psychotic symptoms. Perceptual disturbances. Sleeping well, eating fairly well. Still making some odd statements. ASSESSMENT: Ongoing symptoms of psychosis, but calmer. We are trying hard to find a place to go. Medications were reviewed including dosages and frequencies. [facility]# [id number]
[2019-03-03] MEDS: Pantoprazole 40 mg EC Tab PO SCH (09:14)
[2019-03-03] MEDS: Multivitamin Tab PO SCH (09:14)
--- NOTE | 2019-03-03 10:48 | Internal Medicine Prog Note ---
Internal Medicine Subjective - Subjective Service Date: 03/03/19 Patient is:: awake, verbal, interactive, ambulating Patient Complaints of:: cough Per staff patient has:: no adverse event, no episodes of fall, eating well, tolerating meds Internal Medicine Objective - Physical Exam Vitals and I&O: Vital Signs Temp 97.2 F 03/03/19 06:37 Pulse 73 03/03/19 06:37 Resp 20 03/03/19 06:37 BP 164/71 03/03/19 06:37 Pulse Ox 97 03/03/19 06:37 Intake & Output 03/02/19 03/03/19 03/03/19 18:59 06:59 18:59 Intake Total 1500 120 Balance 1500 120 Intake: Oral 1500 120 Other: # Voids 3 1 # Bowel Movements 0 0 Active Medications: Current Medications Acetaminophen (Tylenol) 650 mg PO Q4HR PRN PRN Reason: Mild Pain / Temp above 100 Stop: 04/21/19 21:52 Al Hydrox/Mg Hydrox/Simethicone (Maalox) 30 ml PO Q4HR PRN PRN Reason: GI DISTRESS Stop: 04/21/19 21:52 Last Admin: 03/01/19 12:55 Dose: 30 ml Lorazepam (Ativan) 0.5 mg PO Q4HR PRN; Protocol PRN Reason: Agitation Stop: 03/22/19 21:52 Last Admin: 02/28/19 20:33 Dose: 0.5 mg Magnesium Hydroxide (Milk Of Magnesia) 30 ml PO HS PRN PRN Reason: Constipation Multivitamins/Vitamin C (Theragran) 1 tab PO DAILY RUSSELL Stop: 04/22/19 08:59 Last Admin: 03/03/19 09:14 Dose: 1 tab Pantoprazole Sodium (Protonix) 40 mg PO DAILY RUSSELL Stop: 04/23/19 08:59 Last Admin: 03/03/19 09:14 Dose: 40 mg Risperidone (Risperdal) 1.5 mg PO BID RUSSELL; Protocol Stop: 04/25/19 16:59 Last Admin: 03/03/19 09:14 Dose: 1.5 mg Trazodone HCl (Desyrel) 100 mg PO HS [facility]; Protocol Stop: 04/29/19 20:59 Last Admin: 03/02/19 20:27 Dose: 100 mg General: alert HEENT: NC/AT, PERRLA, EOMI Neck: Supple, No JVD, No thyromegaly, No LAD Lungs: CTAB Cardiovascular: RRR, Normal S1, Normal S2, without murmur Abdomen: soft, non-tender, globular, non-distended, positive bowel sound Extremities: excoriation, contracture Neurological: no change, disorganized Internal Medicine Assmt/Plan - Assessment Assessment: gerd headache lbp sad - Plan Plan: cont on ppi labs from outside hospital noted cpm dw rn Nutritional Asmnt/Malnutr-PDOC - Dietary Evaluation Malnutrition Findings (Please click <Entered> for more info): Nutritional Asmnt/Malnutrition Start: 02/25/19 12: 29 Text: Status: Complete Freq: Protocol: Document 02/25/19 12:29 CANDELARIA (Rec: 02/25/19 12:33 CANDELARIA [email or web address]) Nutritional Asmnt/Malnutrition Patient General Information Nutritional Screening Low Risk Diagnosis Psychosis, Schizophrenia Pertinent Medical Hx/Surgical Hx GERD Subjective Information Pt is a 58-year-old male admitted on 02/20 c/o agitated behavior. Per Meal/Nutrition Activity Record, Pt is eating 100% meals. HT: 511 WT: 177 LB (80.45 kg) BMI: 24.68 (Normal) GI: WNL, Soft, Non-Tender BM: 8/2 x1 I/O: 2520/Not Noted Skin: WNL, Intact Jamison: 19 Diet Order: Regular Estimated Energy Needs: (Adult , CBW) 7253-8113 kcals (25-30 kcals/ kg) 64-72 g Pro (0.8-0.9 g/kg) 1869-1517 ml (35-40 ml/kg) Pt is eating 100% of meals Per Meal/Nutrition Activity Record. Dietary is currently providing an estimated 2628 kcals and 113 gm Pro to meet 100% kcal and 100+% Pro needs. Current Diet Order/ Nutrition Support Regular Pertinent Medications Maalox (PRN), MOM (PRN), Theragran, Protonix Pertinent Labs No Pertinent labs noted Nutritional Hx/Data Height 5 ft 11 in Height (Calculated Centimeters) 180.3 Current Weight (lbs) 177 lb Weight (Calculated Kilograms) 80.3 Weight (Calculated Grams) 93806.8 [place] Body Weight 75.3 kg % [place] Body Weight 106 Body Mass Index (BMI) 24.7 Weight Status Approriate GI Symptoms GI Symptoms None Last BM 8/ x1 Skin Integrity/Comment: WNL, Intact Jamison: 19 Current %PO Good (75-100%) Estimated Nutritional Goals BEE in Kcals: Using Current wt Calories/Kcals/Kg 25-30 Kcals Calculated 4520-4870 Protein: Using Current wt Protein g/k.8-0.9 Protein Calculated 64-72 Fluid: ml 3483-8363 ml (35-40 ml/kg) Nutritional Problem No current Nutrition Prob Problem N/A Etiology N/A Signs/Symptoms: N/A Malnutrition Related to Morbid Obesity Malnutrition related to morbid obesity No Intervention/Recommendation Comments 1.Continue with regular diet as ordered. Expected Outcomes/Goals Expected Outcomes/Goals 1.PO intake to continue to meet >75% of nutritional needs . 2.Monitor PO intake, wt, nutrition related labs, and skin integrity. 3.F/U as low risk in 7 days,
--- NOTE | 2019-03-03 23:14 | Progress Notes ---
DATE: 03/03/2019 SUBJECTIVE: The patient in the hospital, seems to be calmer. His psychotic symptoms are dissipating, decreasing, seems to be approaching his baseline and amenable to placement, wants placement. He is sleeping well, eating well, getting along generally well with others. We will confirm a safe discharge plan and monitor for further 24 hours. Medications were reviewed including dosages, frequencies. [facility]# [id number]
[2019-03-04] MEDS: Multivitamin Tab PO SCH (08:48)
[2019-03-04] MEDS: Pantoprazole 40 mg EC Tab PO SCH (08:48)
--- NOTE | 2019-03-04 16:57 | Discharge Summary ---
DATE OF DISCHARGE: 03/04/2019 HISTORY OF PRESENT ILLNESS: A 58-year-old male in the hospital, apparently was decompensating, more psychotic, apparently suicidal, really depressed, down, recently homeless. Mumbling to self, disorganized. PAST PSYCHIATRIC HISTORY: Admissions in the past, history of schizophrenia. SOCIAL HISTORY: Recently homeless, unclear social support system in place. Denying any drugs, alcohol or tobacco. PROVISIONAL DIAGNOSIS: Schizophrenia, mood, unspecified. MEDICAL HISTORY: Please see full H and P. HOSPITAL COURSE: After initial assessment, the patient was started on psychotropic medications. Medications were adjusted, titrated. Over the course of treatment, he became more linear, more engaged, no SI, no HI. Sleeping well, eating well. Brighter affect, able to tolerate conversation, able to verbalize his needs. CONDITION UPON DISCHARGE: Improved, better ADLs, good eye contact. Mood "fine." Affect constricted. Thought processes were linear. No SI, no HI, no psychosis. Better insight. PROVISIONAL DIAGNOSIS: Schizophrenia. MEDICAL: Please see full H and P. PROGNOSIS: The patient follows up at [facility] and remains treatment compliant. Prognosis will improve, otherwise guarded. [facility]# [id number]
== END 2019-03-04 14:15 | DRG 885 ==
LOC: GERO 21:20
PROVIDERS: ADMIT Psychiatry & Neurology Psychiatry; ATTEND Psychiatry & Neurology Psychiatry
DX: F25.9 Schizoaffective disorder, unspecified (principal); F39 Unspecified mood [affective] disorder; K21.9 Gastro-esophageal reflux disease without esophagitis; R51 Headache; M54.5 Low back pain; Z59.0 Homelessness
CPT/HCPCS: 83036-90; 90899; G0410; Z7610

== ENCOUNTER 2019-10-26 05:10 | Inpatient (IN) | payer MEDICARE, OTHER ==
[2019-10-26 05:46] VITALS: BP 109/56
[2019-10-26] MEDS ORDERED: Magnesium Hydroxide (MOM) 30 mL UDC PO PRN (05:47)
[2019-10-26] MEDS: Multivitamin Tab PO SCH (08:13)
--- NOTE | 2019-10-26 17:49 | Psychiatric Evaluation ---
DATE OF SERVICE: 10/26/2019 JUSTIFICATION FOR HOSPITALIZATION: Wanting to choke himself. HISTORY OF PRESENT ILLNESS: A 59-year-old male coming in from [facility], admitted on a 5150 hold. Plan was to choke himself, argument with bottle house pumper. History of schizophrenia and bipolar. The patient states he is here for "hallucinations, anger," noted by staff to be upset, depressed, telling staff he is upset because he is away from his family. PAST PSYCHIATRIC HISTORY: Admissions in the past, states he was diagnosed with schizophrenia. MEDICAL: Please see full H and P. Medical history noted. SOCIAL HISTORY: Born in [place]. Not , no kids. It is unclear exactly where he lives, will have [employer] Team Member to confirm his address, listed in [place]. It is unclear if it is a home or mcc. MENTAL STATUS EXAMINATION: Stated age, disheveled, unkempt, fair eye contact, impoverished in his thought processes. Mood "okay," hallucinating. Affect flat. Positive SI to choke self. No HI. Positive hallucinations. Poor insight, poor impulse control. PROVISIONAL DIAGNOSIS: Schizophrenia. Medical, please see full H and P. ESTIMATED LENGTH OF STAY: 7-10 days. ASSESSMENT: The patient is symptomatic, psychotic, suicidal. PLAN: We will initiate dosing of antipsychotic medications, possibly a mood stabilizer. TREATMENT PLAN: Includes group as well as milieu therapy. CONDITIONS FOR DISCHARGE: Improved mood, improved affect, better control of any psychotic symptoms. Cessation of any SI. [facility]# [id number]
[2019-10-27] MEDS: Maalox 30 mL Cup PO PRN ×2 (04:38→15:44)
[2019-10-27] MEDS: Multivitamin Tab PO SCH (08:30)
--- NOTE | 2019-10-27 14:52 | Progress Notes ---
DATE: 10/27/2019 A 59-year-old male coming in from [facility], planning to choke himself, arguing with the warehouse foreman. History of schizophrenia, here for "hallucinations," noted to be upset, depressed, ongoing symptoms, still down, mostly withdrawn, keeps to self. Slept for about 6 hours, still depressed, ongoing suicidal thoughts, not vannesa for safety, still noted to be melancholic down. Time was spent speaking with the patient, he is very down, depressed, complex case. Some complexities involved given the extent and severity of his current depressive state, although multiple medical problems as well, history of schizophrenia. Medical problems were noted. We will continue to monitor. Also reviewed nursing staff notes. Vitals were reviewed. Continue dosing of Risperdal to address ongoing psychotic symptoms, voices, visions or ____ to voices. JOB# [id number]
[2019-10-28] MEDS: Multivitamin Tab PO SCH (09:01)
--- NOTE | 2019-10-28 11:52 | Progress Notes ---
DATE: 10/28/2019 SUBJECTIVE: A 59-year-old male coming in from [facility] on a hold, wanted to check himself, arguments with the housekeeper supervisor, attesting to voices, perceptual disturbances, ongoing symptoms, psychotic symptoms. Still attesting to voices, perceptual disturbances. Fair sleep and appetite. Time was spent speaking with the patient. He is noting he is feeling "little bit better," still plagued by the voices. No EPS, no akathisia. I will be increasing his dosing of Risperdal, calm on exam, engaged. No overt SI or HI, ongoing psychotic symptoms. Fair insight. PLAN: We will titrate dosing of Risperdal today. JOB# [id number]
[2019-10-28] MEDS: Maalox 30 mL Cup PO PRN ×2 (15:15→20:17)
[2019-10-29] MEDS: Maalox 30 mL Cup PO PRN ×2 (02:48→16:52)
--- NOTE | 2019-10-29 07:02 | Progress Notes ---
DATE: 10/29/2019 SUBJECTIVE: A 59-year-old male, currently in the hospital, slept about 5-6 hours. Awake, alert, walking around. The patient claims seeing mother touching his feet, having hallucinations, perceptual disturbances, voices, have been increasing dosing of Risperdal, evaluated for any medication side effects, none noted at this time. No EPS, no akathisia. Confused, disoriented. Knows his name, knows where he is, knows why he is in hospital. Time was spent speaking with the patient. Vitals were reviewed; 113/97 blood pressure, pulse of 100. MENTAL STATUS EXAMINATION: Stated age, wandering. Awake, alert, disoriented. Positive psychosis. No overt SI or HI. Knows he needs help. PLAN: We will increase dosing of Risperdal, monitor closely. JOB# [id number]
[2019-10-29] MEDS: Multivitamin Tab PO SCH (08:57)
--- NOTE | 2019-10-29 11:27 | History and Physical ---
History of Present Illness - HPI Chief Complaint: Psychosis HPI: 59 y/o male who was transferred to [facility] from [facility]. Patient presents to [facility] for suicidal ideation. no homicidal ideation or visual or auditory hallucinations. Initial labwork done in the hospital revealed the following... WBC 8.3 H/H 13.1/39.7 plat 235K Na 139 K 3.7 Bun/Cr 16/1.2 glu 86 UDS neg UA neg PMH includes schizophrenia, mood, unspecified Patient was subsequently admitted for further evaluation and treatment. Vital Signs: Last Vital Signs Temp 98.8 F 10/29/19 05:45 Pulse 84 10/29/19 05:45 Resp 15 10/29/19 08:00 BP 115/74 10/29/19 05:45 Pulse Ox 96 10/29/19 05:45 Past Medical History Cardiovascular: Report: No Pertinent Hx Pulmonary: Report: No Pertinent Hx PENS AND PENCILS DIPPER: Report: No Pertinent Hx GI: Report: No Pertinent Hx Psych: Report: No Pertinent Hx Musculoskeletal: Report: No Pertinent Hx Rheumatologic: Report: No pertinent Hx Infectious Disease: Report: No Pertinent Hx Renal/: Report: No Pertinent Hx Endocrine: Report: No Pertinent Hx Dermatology: Report: No Pertinent Hx - Past Surgical History Past Surgical History: No pertinent Hx Family Medical History - Family Member Mother History Unknown: Yes Ethnicity: Unknown Social History Smoke: No Alcohol: None Drugs: None Lives: Alone - Medications Home Medications: Home Medication Medication Instructions Recorded Type Acetaminophen [Tylenol] 650 mg PO Q4HR PRN tab 03/04/19 Rx Al Hyd/Mg Hyd/Simethicone [Maalox] 30 ml PO Q4HR PRN udc 03/04/19 Rx Lorazepam [Ativan] 0.5 mg PO Q4HR PRN tab 03/04/19 Rx Magnesium Hydroxide [Milk of 30 ml PO HS PRN udc 03/04/19 Rx Magnesia] Multivitamin [Theragran] 1 tab PO DAILY tab 03/04/19 Rx Pantoprazole [Protonix] 40 mg PO DAILY ect 03/04/19 Rx risperiDONE [Risperdal] 1.5 mg PO BID tab 03/04/19 Rx traZODone HCl [Desyrel*] 100 mg PO HS tab 03/04/19 Rx - Allergies Allergies/Adverse Reactions: Allergies Allergy/AdvReac Type Severity Reaction Status Date / Time No Known Allergies Allergy Verified 10/26/19 05:45 Review of Systems - Review of Systems Constitutional: Report: No Significant Eyes: Report: No Significant ENT: Report: No Significant Respiratory: Report: No Significant Cardiovascular: Report: No Significant Gastrointestinal: Report: No Significant Genitourinary: Report: No Significant Musculoskeletal: Report: No Significant Skin: Report: No Significant Neurological: Report: No Significant Physical Exam - Physical Exam HEENT: Report: Ears Nose Throat within normal limits, Pharnyx within normal limits Neck: Report: Within normal limits Cardiovascular Systems: Report: +s1/s2 noted, Regular, Rate and Rhythm Respiratory: Report: Breath Sounds are within normal limits Abdomen: Report: Non-tender to palpation Back: Report: Inspection of back is within normal limits. Extremities: Report: Non-tender to palpation. Skin: Report: Color of skin is within normal limits Neuro/Psych: Report: Mood affect is within normal limits - Assessment Assessment: psychosis - Plan Plan: admit to [facility] continue current meds
[2019-10-30] MEDS: Pantoprazole 40 mg EC Tab PO SCH ×2 (06:47→09:25)
--- NOTE | 2019-10-30 07:09 | Progress Notes ---
DATE: 10/30/2019 SUBJECTIVE: This is a 59-year-old -Swedish male, mostly wandering, pacing around, preoccupied, still responding to internal stimuli, ongoing psychotic symptoms, voices, currently on dosing of Risperdal, seems to be tolerating. I evaluated him for any medication side effects, none noted. No EPS, no akathisia, with medications, fair sleep, appetite and [employer] yacht awakenings. Time spent speaking with the patient. Labs were noted. Vitals were also reviewed. Blood pressure 101/65, pulse of 88. On exam, fair ADLs, wandering, mumbling to self. No SI, no HI, but overt psychotic symptoms. Mood "okay." Affect flat and taking his medications, amenable to treatment. PLAN: We will continue inpatient monitoring. We will increase dosing of Risperdal today. JOB# [id number]
--- NOTE | 2019-10-30 08:18 | General Progress Note ---
Subjective - Review of Systems Service Date: 10/30/19 Subjective: Patient was seen and evaluated. no acute distress afebrile, awake, alert VS T 98.9 P 96 R 20 BP 109/79 Objective - Results Recent Labs: Laboratory Last Values POC Glucose 79 MG/DL (70 - 105) 10/26/19 05:43 - Physical Exam Vitals and I&O: Vital Signs Temp 98.9 F 10/30/19 05:54 Pulse 96 10/30/19 05:54 Resp 20 10/30/19 05:54 BP 109/79 10/30/19 05:54 Pulse Ox 96 10/30/19 05:54 Intake & Output 10/29/19 10/30/19 10/30/19 18:59 06:59 18:59 Intake Total 1000 360 Balance 1000 360 Intake: Oral 1000 360 Other: # Voids 4 2 # Bowel Movements 1 0 Stool Characteristics Soft Formed Brown Active Medications: Current Medications Acetaminophen (Tylenol) 650 mg PO Q4H PRN PRN Reason: Pain (Mild 1-3) Stop: 12/25/19 05:46 Al Hydrox/Mg Hydrox/Simethicone (Maalox) 30 ml PO Q4HR PRN PRN Reason: GI DISTRESS Stop: 12/25/19 05:46 Last Admin: 10/29/19 16:52 Dose: 30 ml Lorazepam (Ativan) 0.5 mg PO Q4HR PRN; Protocol PRN Reason: Anxiety Stop: 11/25/19 05:46 Last Admin: 10/29/19 19:40 Dose: 0.5 mg Magnesium Hydroxide (Milk Of Magnesia) 30 ml PO HS PRN PRN Reason: Constipation Multivitamins/Vitamin C (Theragran) 1 tab PO DAILY RUSSELL Stop: 12/25/19 08:59 Last Admin: 10/29/19 08:57 Dose: 1 tab Pantoprazole Sodium (Protonix) 40 mg PO DAILY RUSSELL Stop: 12/29/19 07:29 Last Admin: 10/30/19 06:47 Dose: 40 mg Risperidone (Risperdal) 2 mg PO BID RUSSELL; Protocol Stop: 12/29/19 08:59 Zolpidem Tartrate (Ambien) 5 mg PO HS PRN PRN Reason: Insomnia Stop: 12/25/19 05:46 Last Admin: 10/29/19 20:47 Dose: 5 mg General: Alert, No acute distress HEENT: Atraumatic, PERRLA, EOMI Neck: Supple, JVD Cardiovascular: Regular rate, Normal S1, Normal S2 Lungs: Clear to auscultation Abdomen: Bowel sounds Extremities: no Clubbing, no Cyanosis, no Edema Neurological: Normal gait Assessment/Plan - Assessment Assessment: psychosis schizophrenia suicidal ideation 5150 - Plan Plan: admit to [facility] continue current meds
[2019-10-30] MEDS ORDERED: Pantoprazole 40 mg EC Tab PO SCH (09:00)
[2019-10-30] MEDS: Multivitamin Tab PO SCH (09:25)
[2019-10-31] MEDS: Maalox 30 mL Cup PO PRN (04:53)
--- NOTE | 2019-10-31 07:25 | General Progress Note ---
Subjective - Review of Systems Service Date: 10/31/19 Subjective: Patient was seen and evaluated. no acute distress afebrile, awake, alert VS T 96.8 P 100 R 20 BP 119/77 Objective - Results Recent Labs: Laboratory Last Values POC Glucose 79 MG/DL (70 - 105) 10/26/19 05:43 - Physical Exam Vitals and I&O: Vital Signs Temp 96.8 F 10/31/19 05:42 Pulse 100 10/31/19 05:42 Resp 20 10/31/19 05:42 BP 119/77 10/31/19 05:42 Pulse Ox 93 10/31/19 05:42 Intake & Output 10/30/19 10/31/19 10/31/19 18:59 06:59 18:59 Intake Total 900 240 Balance 900 240 Intake: Oral 900 240 Other: # Voids 3 3 # Bowel Movements 1 0 Stool Characteristics Soft Formed Brown Active Medications: Current Medications Acetaminophen (Tylenol) 650 mg PO Q4H PRN PRN Reason: Pain (Mild 1-3) Stop: 12/25/19 05:46 Al Hydrox/Mg Hydrox/Simethicone (Maalox) 30 ml PO Q4HR PRN PRN Reason: GI DISTRESS Stop: 12/25/19 05:46 Last Admin: 10/31/19 04:53 Dose: 30 ml Lorazepam (Ativan) 0.5 mg PO Q4HR PRN; Protocol PRN Reason: Anxiety Stop: 11/25/19 05:46 Last Admin: 10/29/19 19:40 Dose: 0.5 mg Magnesium Hydroxide (Milk Of Magnesia) 30 ml PO HS PRN PRN Reason: Constipation Multivitamins/Vitamin C (Theragran) 1 tab PO DAILY RUSSELL Stop: 12/25/19 08:59 Last Admin: 10/30/19 09:25 Dose: 1 tab Pantoprazole Sodium (Protonix) 40 mg PO DAILY RUSSELL Stop: 12/29/19 07:29 Last Admin: 10/30/19 09:25 Dose: 40 mg Risperidone (Risperdal) 2 mg PO BID RUSSELL; Protocol Stop: 12/29/19 08:59 Last Admin: 10/30/19 17:28 Dose: 2 mg Zolpidem Tartrate (Ambien) 5 mg PO HS PRN PRN Reason: Insomnia Stop: 12/25/19 05:46 Last Admin: 10/30/19 20:28 Dose: 5 mg General: Alert, No acute distress HEENT: Atraumatic, PERRLA, EOMI Neck: Supple, JVD Cardiovascular: Regular rate, Normal S1, Normal S2 Lungs: Clear to auscultation Abdomen: Bowel sounds Extremities: no Clubbing, no Cyanosis, no Edema Neurological: Normal gait Assessment/Plan - Assessment Assessment: psychosis schizophrenia suicidal ideation 5150 - Plan Plan: admit to [facility] tremaine current meds
[2019-10-31] MEDS: Multivitamin Tab PO SCH (08:16)
[2019-10-31] MEDS: Pantoprazole 40 mg EC Tab PO SCH (08:16)
--- NOTE | 2019-10-31 12:52 | Progress Notes ---
DATE: 10/31/2019 SUBJECTIVE: A 59-year-old -Indonesian male. Fair orientation, mood "okay." Still with some paranoia, seems to be mumbling to self, responding at times to internal stimuli, ongoing symptoms, safety concerns given his ongoing symptoms of psychosis. Doing well with current dosing of Risperdal, tolerating well. I am monitoring him for any side effects. None noted at this time. No EPS, no akathisia. Vitals were noted. Blood pressure 119/77, pulse of 100. On exam, the patient is an -Indonesian male appearing about his stated age if not little bit younger. Mood "okay." Impoverish thought processes, no SI, no HI, ongoing voices. PLAN: We will continue inpatient monitoring. We will be slowly titrating his dosing of medications to target ongoing symptoms. We will monitor for side effects. Improvement noted. JOB# [id number]
[2019-11-01] MEDS: Maalox 30 mL Cup PO PRN (06:14)
--- NOTE | 2019-11-01 07:20 | General Progress Note ---
Subjective - Review of Systems Service Date: 11/01/19 Subjective: Patient was seen and evaluated. no acute distress afebrile, awake, alert VS T 97.9 P 90 R 19 BP 132/89 Objective - Results Recent Labs: Laboratory Last Values POC Glucose 79 MG/DL (70 - 105) 10/26/19 05:43 - Physical Exam Vitals and I&O: Vital Signs Temp 97.9 F 11/01/19 05:37 Pulse 90 11/01/19 05:37 Resp 19 11/01/19 05:37 BP 132/89 11/01/19 05:37 Pulse Ox 94 11/01/19 05:37 Intake & Output 10/31/19 11/01/19 11/01/19 18:59 06:59 18:59 Intake Total 1000 240 Balance 1000 240 Intake: Oral 1000 240 Other: # Voids 4 1 # Bowel Movements 1 1 Stool Characteristics Soft Formed Brown Active Medications: Current Medications Acetaminophen (Tylenol) 650 mg PO Q4H PRN PRN Reason: Pain (Mild 1-3) Stop: 12/25/19 05:46 Al Hydrox/Mg Hydrox/Simethicone (Maalox) 30 ml PO Q4HR PRN PRN Reason: GI DISTRESS Stop: 12/25/19 05:46 Last Admin: 11/01/19 06:14 Dose: 30 ml Lorazepam (Ativan) 0.5 mg PO Q4HR PRN; Protocol PRN Reason: Anxiety Stop: 11/25/19 05:46 Last Admin: 10/29/19 19:40 Dose: 0.5 mg Magnesium Hydroxide (Milk Of Magnesia) 30 ml PO HS PRN PRN Reason: Constipation Multivitamins/Vitamin C (Theragran) 1 tab PO DAILY RUSSELL Stop: 12/25/19 08:59 Last Admin: 10/31/19 08:16 Dose: 1 tab Pantoprazole Sodium (Protonix) 40 mg PO DAILY RUSSELL Stop: 12/29/19 07:29 Last Admin: 10/31/19 08:16 Dose: 40 mg Risperidone (Risperdal) 2 mg PO BID RUSSELL; Protocol Stop: 12/29/19 08:59 Last Admin: 10/31/19 17:03 Dose: 2 mg Zolpidem Tartrate (Ambien) 5 mg PO HS PRN PRN Reason: Insomnia Stop: 12/25/19 05:46 Last Admin: 10/31/19 20:35 Dose: 5 mg General: Alert, No acute distress HEENT: Atraumatic, PERRLA, EOMI Neck: Supple, JVD Cardiovascular: Regular rate, Normal S1, Normal S2 Lungs: Clear to auscultation Abdomen: Bowel sounds Extremities: no Clubbing, no Cyanosis, no Edema Neurological: Normal gait Assessment/Plan - Assessment Assessment: psychosis schizophrenia suicidal ideation 5150 - Plan Plan: admit to [facility] tremaine current meds
[2019-11-01] MEDS: Pantoprazole 40 mg EC Tab PO SCH (08:03)
[2019-11-01] MEDS: Multivitamin Tab PO SCH (08:03)
--- NOTE | 2019-11-01 15:11 | Progress Notes ---
DATE: 11/01/2019 SUBJECTIVE: The patient in the hospital, seems to be improving, 59-year-old male, much calmer, still mumbling and talking to self, pacing, psychotic symptoms dissipating, feels that he is doing "better", feeling "more stable", sleeping well, eating well, getting along well with others. Time was spent speaking with the patient. Nursing notes were reviewed. Vitals were reviewed. Blood pressure 118/79, pulse of 105 for example, O2 saturation 90%. On exam, -Dominican male. Stated age. Fair eye contact. Mood "okay." Affect flat, still tangential, ongoing hallucinations, but less. No SI. I evaluated him for any side effects. No EPS, no akathisia. PLAN: We will monitor for further 24 hours, likely approaching baseline. JOB# [id number]
--- NOTE | 2019-11-02 08:28 | General Progress Note ---
Subjective - Review of Systems Service Date: 11/02/19 Subjective: Patient was seen and evaluated. no acute distress afebrile, awake, alert Objective - Results Recent Labs: Laboratory Last Values POC Glucose 79 MG/DL (70 - 105) 10/26/19 05:43 - Physical Exam Vitals and I&O: Vital Signs Temp 98 F 11/02/19 06:03 Pulse 99 11/02/19 06:03 Resp 20 11/02/19 06:03 BP 114/83 11/02/19 06:03 Pulse Ox 94 11/02/19 06:03 Intake & Output 11/01/19 11/02/19 11/02/19 18:59 06:59 18:59 Intake Total 1200 480 Balance 1200 480 Intake: Oral 1200 480 Other: # Voids 4 3 # Bowel Movements 1 0 Stool Characteristics Soft Soft Formed Formed Brown Active Medications: Current Medications Acetaminophen (Tylenol) 650 mg PO Q4H PRN PRN Reason: Pain (Mild 1-3) Stop: 12/25/19 05:46 Al Hydrox/Mg Hydrox/Simethicone (Maalox) 30 ml PO Q4HR PRN PRN Reason: GI DISTRESS Stop: 12/25/19 05:46 Last Admin: 11/01/19 06:14 Dose: 30 ml Lorazepam (Ativan) 0.5 mg PO Q4HR PRN; Protocol PRN Reason: Anxiety Stop: 11/25/19 05:46 Last Admin: 10/29/19 19:40 Dose: 0.5 mg Magnesium Hydroxide (Milk Of Magnesia) 30 ml PO HS PRN PRN Reason: Constipation Multivitamins/Vitamin C (Theragran) 1 tab PO DAILY RUSSELL Stop: 12/25/19 08:59 Last Admin: 11/01/19 08:03 Dose: 1 tab Pantoprazole Sodium (Protonix) 40 mg PO DAILY RUSSELL Stop: 12/29/19 07:29 Last Admin: 11/01/19 08:03 Dose: 40 mg Risperidone (Risperdal) 2 mg PO BID RUSSELL; Protocol Stop: 12/29/19 08:59 Last Admin: 11/01/19 17:06 Dose: 2 mg Zolpidem Tartrate (Ambien) 5 mg PO HS PRN PRN Reason: Insomnia Stop: 12/25/19 05:46 Last Admin: 11/01/19 22:14 Dose: 5 mg General: Alert, No acute distress HEENT: Atraumatic, PERRLA, EOMI Neck: Supple, JVD Cardiovascular: Regular rate, Normal S1, Normal S2 Lungs: Clear to auscultation Abdomen: Bowel sounds Extremities: no Clubbing, no Cyanosis, no Edema Neurological: Normal gait Assessment/Plan - Assessment Assessment: psychosis schizophrenia suicidal ideation 5150 - Plan [facility] Nutritional Asmnt/Malnutr-PDOC - Dietary Evaluation Malnutrition Findings (Please click <Entered> for more info): Nutritional Asmnt/Malnutrition Start: 11/01/19 12: 38 Text: Status: Complete Freq: Protocol: Document 11/01/19 12:38 CANDELARIA (Rec: 11/01/19 12:41 CANDELARIA [email or web address]) Nutritional Asmnt/Malnutrition Patient General Information Nutritional Screening Low Risk Diagnosis Psychosis Pertinent Medical Hx/Surgical Hx Schizophrenia Subjective Information Pt is a 59-year-old male admitted on 10/25 d/t hallucinations, planning to choke himself, suicidal ideation. Pt is eating an estimated 100% of meals since admit date (x6 days) Per Meal/ Nutrition Activity Record. Dietary is currently providing an estimated 2450 kcals and 120 gm Pro to meet 100+% kcal and 100+% Pro needs. Pt walking in halls today, stated his stomach felt fine, no heartburn present. Anthropometrics HT: 511 WT: 177 LB (80.45 kg) BMI: 24.69 (Normal) GI/ Skin Integrity GI: WNL, Non-tender BM: 10/31 x1 I/O: 1240/Not Noted Skin: WNL, Intact Jamison: 21 Diet Order: Regular Estimated Energy Needs: ( Geriatric, CBW) 6156-2504 kcals (25-30 kcals/ kg) 80-100g Pro (1.0-1.2 g/kg) 0272-3302 ml (25-30 ml/kg) Current Diet Order/ Nutrition Support Regular Pertinent Medications Maalox (PRN), MOM (PRN), Theragran, Protonix Pertinent Labs 10/25: POC Glucose 79 No abnormal pertinent labs Nutritional Hx/Data Height 1.8 m Height (Calculated Centimeters) 180.3 Current Weight (lbs) 80.286 kg Weight (Calculated Kilograms) 80.3 Weight (Calculated Grams) 36609.8 [place] Body Weight 172 LB (78.18 kg) % [place] Body Weight 103 Body Mass Index (BMI) 24.7 Weight Status Approriate GI Symptoms Last BM 10/31 x1 Skin Integrity/Comment: Skin: WNL, Intact Jamison: 21 Current %PO Good (75-100%) Estimated Nutritional Goals BEE in Kcals: Using Current wt Calories/Kcals/Kg 25-30 Kcals Calculated 2630-9680 Protein: Using Current wt Protein g/k.0-1.2 Protein Calculated 80-100 Fluid: ml 0779-4543 ml (25-30 ml/kg) Nutritional Problem No current Nutrition Prob Problem No nutrition diagnosis at this time. Etiology N/A Signs/Symptoms: N/A Malnutrition Related to Morbid Obesity Malnutrition related to morbid obesity No Intervention/Recommendation Comments Continue Regular diet as tolerated. Expected Outcomes/Goals Expected Outcomes/Goals 1.PO intake to continue to meet >75% of estimated nutritional needs. 2.Monitor PO intake, wt, nutrition related labs, and skin integrity. 3.F/U as low risk in 7-10 days , 11/07-11/10
[2019-11-02] MEDS: Pantoprazole 40 mg EC Tab PO SCH (08:49)
[2019-11-02] MEDS: Multivitamin Tab PO SCH (08:49)
--- NOTE | 2019-11-02 13:16 | Discharge Summary ---
DATE OF DISCHARGE: 11/02/2019 HISTORY OF PRESENT ILLNESS: A 59-year-old male coming in from [facility]. Planing to chock himself, schizophrenia, voices, hallucinations, upset, depressed, under control of voices. PAST PSYCHIATRIC HISTORY: Admissions in the past, schizophrenia. SOCIAL HISTORY: Born in [place]. Not , no kids. PROVISIONAL DIAGNOSIS: Schizophrenia. MEDICAL HISTORY: Please see full H and P. HOSPITAL COURSE: After initial assessment, started on medications. Medications were adjusted, titrated. Over the course of treatment, mood improved, affect improved, calmer, more cooperative, voices extinguished, better sleep and appetite, getting along well with staff and peers, eating well, sleeping well, no agitation, no escalation of behaviors. CONDITION UPON DISCHARGE: Improved, better ADLs. Mood "okay" and engaged. No SI, no HI, no psychosis. Better insight. DISCHARGE DIAGNOSIS: Schizophrenia. MEDICAL: Please see full H and P. PROGNOSIS: The patient follows up with outpatient mental health services and remains compliant with treatment. Prognosis will improve, otherwise guarded. [facility]# [id number]
== END 2019-11-02 14:00 | DRG 885 ==
LOC: GERO 05:10
PROVIDERS: ADMIT Psychiatry & Neurology Psychiatry; ATTEND Psychiatry & Neurology Psychiatry
DX: F20.9 Schizophrenia, unspecified (principal); R45.851 Suicidal ideations; F29 Unspecified psychosis not due to a substance or known physiological condition; Z79.899 Other long term (current) drug therapy
CPT/HCPCS: 82948-90; 83036-90; Z7610